=== PATIENT | female | born 1970 | race Caucasian/White ===

== ENCOUNTER 2024-09-15 13:04 | Outpatient (AMB) | payer BC, SELFPAY ==
[2024-09-15 13:21] VITALS: BP 120/81; PULSE 79; RESP 18; TEMP 35.9; O2SAT 97; BMI 39.2
--- NOTE | 2024-09-15 13:21 | ORTHONT_ITS ---
Vital signs 09/15/24 13:21 Height 1.5 m Height Method Stated Weight 88.252 kg Weight Measurement Method Standing Scale BMI 39.2 BP 120/81 Blood Pressure Source Automatic Cuff Blood Pressure Location Right Upper Arm Position Sitting Respiration 18 Pulse 79 Pulse Source Monitor Temp 96.6 F L Temp Source Temporal Artery Scan Pulse Oximetry (%) 97 Oxygen Delivery Method Room Air Med/Allergies Allergies & Medications Allergies Penicillins Allergy (Mild, Verified 09/15/24 13:22) Rash Medication Reconciliation albuterol sulfate 90 mcg/actuation aerosol inhaler 2 puff inhalation Q6H #18 gr ams 10/18/19 [Rx Confirmed 09/15/24] atorvastatin [Lipitor] PO 10/18/19 [History Confirmed 09/15/24] fluticasone propionate 50 mcg/actuation nasal spray,suspension (Flonase Allergy Relief) 2 spray intranasal QDAY #16 grams 10/18/19 [Rx Confirmed 09/15/24] metoprolol succinate 25 mg capsule sprinkle, ext. release 24 hr 25 mg PO QDAY 10/18/19 [History Confirmed 09/15/24] pregabalin 75 mg capsule (Lyrica) 75 mg PO BID 10/18/19 [History Confirmed 09/15/24] promethazine-DM 6.25 mg-15 mg/5 mL oral syrup 5 ml PO Q6H PRN cough #150 mL 10/18/19 [Rx Confirmed 09/15/24] Subjective Visit Visit for: new patient and knee (RIGHT) Immunization / Flu Flu Vaccine in the Last 12 Months: No Flu Vaccine Exclusion Criteria: No Exclusion Criteria History of Present Illness Chief complaint: RIGHT KNEE PAIN Yolanda is a pleasant 53-year-old female with a recent ACL reconstruction 2022. She reports continued knee pain since then. She has tried physical therapy ice and anti-inflammatories. She has not had any injections. The pain is on the medial aspect of her knee and is bothering her quite a bit. 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 Exam Exam Patient is in no acute distress and is cooperative with the examination today. Breathing is nonlabored. Patient has a normal mood and affect. Bilateral extremities were evaluated and demonstrates sensation intact to light touch. Palpable pedal pulses are present. No significant edema is present. Bilateral hips were examined. The patient has no pain with log roll of the hips. Internal rotation to 30 degrees and external rotation to 30 degrees is painless. Negative FADIR. Left knee was examined today. The left knee is in reasonable alignment. Range of motion from 0-120 degrees. Knee is stable to varus and valgus as well as AP tra nslation with <5mm. Patient has a negative McMurrays. There is no pain with patellofemoral compression and no crepitus noted. The knee is nontender to palpation. The right knee was also examined. The right knee is in [varus] alignment. Range of motion from [0-115] degrees. Knee is stable to varus and valgus as well as AP translation with <5mm. Patient has a [negative] McMurrays. There is [no] pain with patellofemoral compression and [no] crepitus noted. The knee is [tender] to palpationMedially X-rays demonstrate mild arthritis of the right knee. These films are over 2 years old and are nonweightbearing Assessment and Plan Problem List (1) Arthritis of right knee: Status: Acute Plan: Woody is a pleasant 53-year-old female with a history of right knee pain and recent right knee surgery. She has not had any recent injections. She reports the pain is affecting her quality life and happiness. We will get new x-rays to see what her right knee looks like. I do have high suspicion for right knee arthritis. She had a recent ACL surgery. 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 ([id number]) Past Medical History Past Medical History Have you ever been diagnosed with any of the following: Neurological Problems Seizures: No Amyotrophic Lateral Sclerosis (ALS/Julia Gehrig's): No Cardiology Problems Congestive Heart Failure: No Respiratory Problems Chronic Obstructive Pulmonary Disease (COPD): No Asthma: Yes Smoking: No Smoking Exposure: No Stomache/Intestinal Problems Hiatal Hernia: Yes Gastroesophageal Reflux Disease: Yes Genital/Urinary Problems Renal Disease: No Reproductive Problems Previous Pregnancies: Yes () Endocrine Problems Diabetes Mellitus Type 1: No Diabetes Mellitus Type 2: No Blood Problems Anemia: Yes Psychologic Problems Depression: Yes (in past) Other Problems Blood Transfusions: No Blood Transfusion Reaction: No Anesthesia Reactions: No
== END 2024-09-15 13:41 | disposition home or self-care (01) ==
PROVIDERS: PCP Internal Medicine; Referring Provider Internal Medicine; Supervising Provider Orthopaedic Surgery Adult Reconstructive Orthopaedic Surgery; Visit Provider Orthopaedic Surgery Adult Reconstructive Orthopaedic Surgery
DX: M17.11 Unilateral primary osteoarthritis, right knee (principal)
CPT/HCPCS: 99204; G0463

== ENCOUNTER 2024-10-17 14:08 | Outpatient (AMB) | payer BC, SELFPAY ==
[2024-10-17 14:39] VITALS: BP 111/72; PULSE 65; RESP 18; TEMP 36.3; O2SAT 97; BMI 39.3
--- NOTE | 2024-10-17 14:39 | PD.ORTHCLVIS ---
Vital signs 10/17/24 14:39 Height 1.5 m Height Method Stated Weight 88.507 kg Weight Measurement Method Standing Scale BMI 39.3 BP 111/72 Blood Pressure Source Automatic Cuff Blood Pressure Location Right Upper Arm Position Sitting Respiration 18 Pulse 65 Pulse Source Monitor Temp 97.4 F Temp Source Temporal Artery Scan Pulse Oximetry (%) 97 Oxygen Delivery Method Room Air Med/Allergies Allergies & Medications Allergies Penicillins Allergy (Mild, Verified 10/17/24 14:44) Rash Medication Reconciliation albuterol sulfate 90 mcg/actuation aerosol inhaler 2 puff inhalation Q6H #18 grams 10/18/19 [Rx Confirmed 10/17/24] atorvastatin [Lipitor] PO 10/18/19 [History Confirmed 10/17/24] fluticasone propionate 50 mcg/actuation nasal spray,suspension (Flonase Allergy Relief) 2 spray intranasal QDAY #16 grams 10/18/19 [Rx Confirmed 10/17/24] metoprolol succinate 25 mg capsule sprinkle, ext. release 24 hr 25 mg PO QDAY 10/18/19 [History Confirmed 10/17/24] Exam Exam Patient is in no acute distress and is cooperative with the examination today. Breathing is nonlabored. Patient has a normal mood and affect. Bilateral extremities were evaluated and demonstrates sensation intact to light touch. Palpable pedal pulses are present. No significant edema is present. Bilateral hips were examined. The patient has no pain with log roll of the hips. Internal rotation to 30 degrees and external rotation to 30 degrees is painless. Negative FADIR. Left knee was examined today. The left knee is in reasonable alignment. Range of motion from 0-120 degrees. Knee is stable to varus and valgus as well as AP translation with <5mm. Patient has a negative McMurrays. There is no pain with patellofemoral compression and no crepitus noted. The knee is nontender to palpation. The right knee was also examined. The right knee is in [varus] alignment. Range of motion from [0-115] degrees. Knee is stable to varus and valgus as well as AP translation with <5mm. Patient has a [negative] McMurrays. There is [no] pain with patellofemoral compression and [no] crepitus noted. The knee is [tender] to palpationMedially Weightbearing x-rays demonstrate moderate arthritis of the right knee in the medial compartment Assessment and Plan Problem List (1) Arthritis of right knee: Status: Acute Plan: Woody is a pleasant 53-year-old female with a history of right knee pain and recent right knee surgery. She has not had any recent injections. We discussed anti-inflammatories and cortisone injections if needed. She reports that she is doing well and wants to continue with anti-inflammatory treatment Office Procedures GNS Level of Care Nursing/Assessment Patient Status: Established Patient Nursing Assessment/Reassesment: Medication Reconciliation, Update PMH in EMR and Vital Signs Coordination of Care: Complex Care and Chronic Disease 1-5, Education Complex Pt/Fam, Consent,records obtained, informed consent, Results/Orders obtained and Staff clarify orders Established Patient Charge Established Patient Point Assignment: 95 Established Patient Point Charge: EP Level 3 (80-115) AK Intake Visit Data Collection New Patient or Established: Established Patient (seen at [facility] within 3 years) Reason for Visit:: F/U XRAYS PCP or OBGYN visit in last 3 months: No Hx Now: No Do You Feel Safe at Home: Yes Questionairres Past Medical History Past Medical History Have you ever been diagnosed with any of the following: Neurological Problems Seizures: No Amyotrophic Lateral Sclerosis (ALS/Julia Gehrig's): No Cardiology Problems Congestive Heart Failure: No Respiratory Problems Chronic Obstructive Pulmonary Disease (COPD): No Asthma: Yes Smoking: No Smoking Exposure: No Stomache/Intestinal Problems Hiatal Hernia: Yes Gastroesophageal Reflux Disease: Yes Genital/Urinary Problems Renal Disease: No Reproductive Problems Previous Pregnancies: Yes () Endocrine Problems Diabetes Mellitus Type 1: No Diabetes Mellitus Type 2: No Blood Problems Anemia: Yes Psychologic Problems Depression: Yes (in past) Other Problems Blood Transfusions: No Blood Transfusion Reaction: No Anesthesia Reactions: No Subjective Visit Visit for: follow up visit and knee Immunization / Flu Flu Vaccine in the Last 12 Months: No Flu Vaccine Exclusion Criteria: No Exclusion Criteria History of Present Illness Chief complaint: Right knee pain Yolanda is a pleasant 54-year-old female with right knee pain and right knee arthritis. She had a prior ACL reconstruction 1 year ago. She reports significant instability as well as pain. X-rays demonstrate moderate right knee arthritis. She has had prior injections and physical therapy in the past. She is starting to take meloxicam and reports that this does help Pain Pain level (0-10): 5 Pain duration: all day Pain location: inside (medial), outside (lateral), anterior and posterior Pain quality: sharp, dull and aching Pain timing: increases with activity Associated signs & symptoms: weakness Ambulatory data Ambulatory device: walker and none Treatments Improvement with previous injections: No Improvement with PT: No Improvement with NSAIDS: n/a Review of Systems Review of Systems: All systems negative unless otherwise noted in HPI.
== END 2024-10-17 15:24 | disposition home or self-care (01) ==
PROVIDERS: Supervising Provider Orthopaedic Surgery Adult Reconstructive Orthopaedic Surgery; Visit Provider Orthopaedic Surgery Adult Reconstructive Orthopaedic Surgery
DX: M17.11 Unilateral primary osteoarthritis, right knee (principal); M25.561 Pain in right knee; Z98.890 Other specified postprocedural states
CPT/HCPCS: 99213; G0463

== ENCOUNTER → 2024-10-19 | Outpatient (CLI) | payer BC, SELFPAY ==
--- NOTE | 2024-10-19 08:30 | XR_ITS ---
Examination: CT maxillofacial, without intravenous contrast. 2-D sagittal reconstructions. 3-D reconstructions. Date and time of exam:October 19, 2024 0920 hours INDICATIONS: Sinus pressure and pain one year CTDI: vol (mGy):6.36 DLP: (mGycm):90.1 Technique: Multiple axial images of maxillofacial region, 3.0 mm slice thickness. 2-D sagittal and coronal reconstructions. 3-D reconstructions. Low dose protocols were performed. One or more of the following dose reduction techniques were used; automated exposure control, adjustment of the mA and/or KV according to patient size, use of iterative reconstruction technique. Findings: No significant mucosal disease involving the frontal ethmoid air cells Mucosal thickening up to 3 mm in the maxillary antra Deviation nasal septum to the right 3 mm No hypertrophy inferior nasal turbinates Negative for otitis media or otitis externa Symmetrical external auditory canals No nasopharyngeal mass The optic globes exhibit symmetry No cerebral lesion depicted IMPRESSION: Mild sinusitis as above.
== END | disposition home or self-care (01) ==
LOC: CCTX 10-30 06:29
PROVIDERS: PCP Internal Medicine; Referring Provider Otolaryngology; Visit Provider Otolaryngology
DX: J32.8 Other chronic sinusitis (principal)
CPT/HCPCS: 70486

== ENCOUNTER → 2025-02-13 | Outpatient (CLI) | payer BC, SELFPAY ==
[2025-02-13 14:56] LABS: Collection Type, Urine Clean Catch
[2025-02-13 15:26] LABS: Basophils % (Auto) 1 % (0-2.5); Eosinophils # (Auto) 0.1 Thou/mm3 (0.0-0.5); Eosinophils % (Auto) 3 % (0-10); Hemoglobin 14.2 g/dL (12.0-16.0); Immature Granulocytes % (Auto) 0 % (0-0); Immature Granulocytes Auto 0.01 Thou/mm3 (0.00-0.00); Lymphocytes # (Auto) 2.3 Thou/mm3 (1.0-4.8); Lymphocytes % (Auto) 51 % (10-50); Mean Corpuscular HGB Conc 33.8 g/dl (31.0-37.0); Mean Corpuscular Hemoglobin 31.6 pg (25.0-35.0); Mean Corpuscular Volume 94 fL (80-100); Monocytes # (Auto) 0.3 Thou/mm3 (0.0-0.8); Monocytes % (Auto) 6 % (0-12); Neutrophils # (Auto) 1.8 Thou/mm3 (1.8-7.7); Neutrophils % (Auto) 39 % (37-80); Nucleated Red Blood Cell % 0 /100 WBC (0); Platelet Count 304 Thou/mm3 (140-440); RDW Standard Deviation 44.9 fL (36.4-46.3); Red Blood Count 4.49 Miln/mm3 (4.00-5.20); White Blood Count 4.5 Thou/mm3 (3.6-11.0)
[2025-02-13 15:36] LABS: Bacteria,Urine Rare; Bilirubin,Urine Negative (Negative); Blood,Urine Negative (Negative); Clarity,Urine Clear (Clear/Hazy); Color,Urine Yellow (Lt Yel-Yel); Glucose, Urine Negative (Negative); Ketones,Urine Negative (Negative); Leukocyte Esterase,Urine Negative (Negative); Nitrite,Urine Negative (Negative); Protein,Urine Trace (Neg - Trace); RBC,Urine 6 /hpf (0-3); Specific Gravity,Urine 1.029 (1.001-1.035); Squamous Epithelial Cell,Urine 7 /hpf (0-5); Urobilinogen,Urine Negative mg/dL (0.0-1.0); WBC,Urine 2 /hpf (0-5)
[2025-02-13 15:45] LABS: Glucose Estimated Average 137 mg/dL (80-131); Hemoglobin A1C 6.4 % Hgb (4.8-6.0)
[2025-02-13 15:48] LABS: Alanine Aminotransferase 28 U/L (10-49); Albumin, Serum 4.5 gm/dL (3.5-5.0); Albumin/Globulin Ratio 1.7 (1.2-2.2); Alkaline Phosphatase 97 U/L (46-116); Anion Gap 10 (7-16); Aspartate Amino Transferase 25 U/L (0-34); BUN/Creatinine Ratio 17 Ratio (12-20); Bilirubin,Total 0.6 mg/dL (0.3-1.2); Blood Urea Nitrogen 17 mg/dL (9-23); Calcium 9.5 mg/dL (8.3-10.6); Calcium (Corrected) 9.5 mg/dL (8.5-10.1); Carbon Dioxide 24.3 mMol/L (20.0-31.0); Cardiac Risk Estimate 3.9 RATIO (3.7-5.6); Chloride 111 mMol/L (98-107); Cholesterol 176 mg/dL (132-200); Globulin 2.6 gm/dL (2.3-3.5); Glucose 123 mg/dL (74-106); HDL Cholesterol 45 mg/dL (40-60); LDL Cholesterol,Calculated 85 mg/dL (0-130); Osmolality,Calculated 291 (275-295); Sodium 145 mMol/L (136-145); Thyroid Stimulating Hormone 1.07 uIU/mL (0.55-4.78); Total Protein 7.1 gm/dL (5.7-8.2); Triglycerides 229 mg/dL (30-150); Uric Acid 7.9 mg/dL (3.1-7.8); eGFR > 60 See Note
[2025-02-13 15:50] LABS: Vitamin B12 275 pg/mL (211-911); Vitamin D 25 Hydroxy Total 25.4 ng/mL (7.3-40.2)
== END | disposition home or self-care (01) ==
LOC: COPL 14:10
PROVIDERS: PCP Internal Medicine; Referring Provider Internal Medicine; Visit Provider Internal Medicine
DX: Z00.00 Encounter for general adult medical examination without abnormal findings (principal); E78.5 Hyperlipidemia, unspecified
CPT/HCPCS: 36415; 80053; 80061; 81001; 82306; 82607; 83036; 84443; 84550; 85025

== ENCOUNTER → 2025-05-23 | Outpatient (CLI) | payer BC, SELFPAY ==
[2025-05-23 12:15] LABS: Glucose Estimated Average 151 mg/dL (80-131); Hemoglobin A1C 6.9 % Hgb (4.8-6.0)
[2025-05-23 12:18] LABS: Alanine Aminotransferase 50 U/L (10-49); Albumin, Serum 4.5 gm/dL (3.5-5.0); Albumin/Globulin Ratio 1.8 (1.2-2.2); Alkaline Phosphatase 111 U/L (46-116); Anion Gap 9 (7-16); Aspartate Amino Transferase 36 U/L (0-34); BUN/Creatinine Ratio 18 Ratio (12-20); Bilirubin,Total 0.5 mg/dL (0.3-1.2); Blood Urea Nitrogen 20 mg/dL (9-23); Calcium 9.6 mg/dL (8.3-10.6); Calcium (Corrected) 9.6 mg/dL (8.5-10.1); Carbon Dioxide 26.9 mMol/L (20.0-31.0); Cardiac Risk Estimate 3.6 RATIO (3.7-5.6); Chloride 109 mMol/L (98-107); Cholesterol 174 mg/dL (132-200); Creatinine (Component) 1.1 mg/dL (0.6-1.3); Globulin 2.5 gm/dL (2.3-3.5); Glucose 126 mg/dL (74-106); HDL Cholesterol 49 mg/dL (40-60); LDL Cholesterol,Calculated 94 mg/dL (0-130); Osmolality,Calculated 293 (275-295); Potassium 4.5 mMol/L (3.4-5.1); Sodium 145 mMol/L (136-145); Total Protein 7.0 gm/dL (5.7-8.2); Triglycerides 157 mg/dL (30-150); eGFR 60 See Note
== END | disposition home or self-care (01) ==
LOC: COPL 11:15
PROVIDERS: PCP Internal Medicine; Referring Provider Internal Medicine; Visit Provider Internal Medicine
DX: I10 Essential (primary) hypertension (principal); E78.5 Hyperlipidemia, unspecified; R73.03 Prediabetes
CPT/HCPCS: 36415; 80053; 80061; 83036

== ENCOUNTER → 2025-05-23 | Outpatient (CLI) | payer BC, SELFPAY ==
--- NOTE | 2025-05-23 08:15 | XR_ITS ---
Examination: Screening digital mammography, bilateral Computer aided detection 3-D breast Tomosynthesis, bilateral Date and time of exam: May 23, 2025 0809 hours Compared to mammograms dating to September 08, 2019 Indication: Screening Technique: Nonmagnified MLO, CC views of the breasts to been obtained, reconstructed from 3-D Tomosynthesis images. R2 computer aided detection program utilized for evaluation of suspicious masses and/or abnormal calcifications. 3-D Tomosynthesis images obtained. Findings: Scattered areas of fibroglandular density. Smaller nodule lobular margins retroareolar region right breast, currently measuring 12 mm Breast biopsy marker slightly inner and upper left breast Impression: BI-RADS Category 0: Incomplete: Need additional imaging evaluation Recommend follow-up breast sonography to assess 12 mm nodule retroareolar region right breast
== END | disposition home or self-care (01) ==
LOC: CDIM 08:01
PROVIDERS: PCP Internal Medicine; Referring Provider Internal Medicine; Visit Provider Internal Medicine
DX: Z12.31 Encounter for screening mammogram for malignant neoplasm of breast (principal); N63.41 Unspecified lump in right breast, subareolar
CPT/HCPCS: 77063; 77067

== ENCOUNTER → 2025-06-21 | Outpatient (CLI) | payer BC, SELFPAY ==
--- NOTE | 2025-06-21 10:30 | XR_ITS ---
Examination: Breast ultrasound complete, bilateral Date and time of exam: June 21, 2025 1044 hours INDICATIONS: History left breast biopsy 2013 negative, mammogram May 23, 2025 retroareolar nodule right breast 12 mm Technique: Real-time grayscale ultrasonographic imaging bilateral breasts, including all 4 quadrants as well as nipple retroareolar and axillary regions. Findings: Sonographic images right breast Retroareolar nodule lobular margins 13 x 12 mm Sonographic images left breast No cystic or solid mass IMPRESSION: BI-RADS Category 3: Probably benign findings. Recommend 1 additional 6 month right breast sonogram follow-up to document continued stability of the retroareolar nodule right breast
== END | disposition home or self-care (01) ==
LOC: CDIM 10:14
PROVIDERS: Referring Provider Internal Medicine; Visit Provider Internal Medicine
DX: N63.41 Unspecified lump in right breast, subareolar (principal)
CPT/HCPCS: 76641